=== PATIENT | female | born 1960 | race Caucasian/White ===

== ENCOUNTER 2020-04-11 10:12 | Emergency (ER) | payer MEDICARE, MEDICAID ==
[~2020-04-11] VITALS: Ht 172.7 cm; Wt 75.4 kg
--- NOTE | 2020-04-11 10:42 | NUR ---
BILAT LEGS CRAMPING/PAIN for the last 7 days. and pt states other MENOPAUSAL ISSUES.
[2020-04-11 10:58] LABS: BASOPHILS % (AUTO) 1 % (0-1); EOSINOPHILS % (AUTO) 1 % (1-7); LYMPHOCYTES % (AUTO) 28 % (22-44); MEAN CORPUSCULAR HEMOGLOBIN 33.2 pg (27.0-34.8); MEAN CORPUSCULAR HGB CONC 34.3 g/dL (32.4-35.8); MEAN PLATELET VOLUME 7.8 fL (7.4-10.4); MONOCYTES % (AUTO) 9 % (2-9); NEUTROPHILS % (AUTO) 62 % (42-75); PLATELET COUNT 194 x10^3/uL (130-400); RED BLOOD COUNT 3.95 x10^6/uL (3.82-5.3); RED CELL DISTRIBUTION WIDTH 13.1 % (9.6-15.2)
[2020-04-11 10:59] LABS: MD NO
[2020-04-11] MEDS ORDERED: CYCLOBENZAPRINE 10 MG TABLET PO ONE (11:00)
[2020-04-11] MEDS ORDERED: KETOROLAC 30 MG/1 ML IM ONE (11:00)
[2020-04-11] MEDS ORDERED: KETOROLAC 30 MG/1 ML ONE (11:01)
[2020-04-11] MEDS ORDERED: CYCLOBENZAPRINE 10 MG TABLET ONE (11:01)
[2020-04-11 11:10] LABS: ALBUMIN 4.2 g/dL (3.4-5.0); ANION GAP 6 mmol/L (5-15); CALCIUM 9.3 mg/dL (8.5-10.1); CHLORIDE 111 mmol/L (98-107); CREATININE 0.79 mg/dL (0.55-1.02)
--- NOTE | 2020-04-11 11:23 | NUR ---
ultrasound done. pt refused torodol.
--- NOTE | 2020-04-11 12:00 | NUR ---
preceptor note. spoke with us. they state they are having trouble with getting the results to cross over. this rn suggested faxing or bringing the results over so the md can recheck the pt
[2020-04-11 12:32] VITALS: BP 158/68
--- NOTE | 2020-04-11 12:33 | NUR ---
PT WALKED OUT SELF WITH STEADY GAIT.
== END 2020-04-11 12:35 | disposition home or self-care (01) ==
LOC: ED 12:28
DX: M79.662 Pain in left lower leg (principal); M79.661 Pain in right lower leg; I10 Essential (primary) hypertension
CPT/HCPCS: 36415; 80048; 82040; 85025; 93970; 99284